=== PATIENT | male | born 1950 | race Caucasian/White ===

== ENCOUNTER 2021-03-31 16:13 | Inpatient (IN) | payer MEDICARE, SELFPAY ==
[2021-03-31] VITALS (8 sets, daily range): BP systolic 115–132; BP diastolic 66–93; PULSE 66–78; RESP 18–31; TEMP 36.7; O2SAT 89–100
--- NOTE | ~2021-03-31 | CT_ITS ---
EXAMINATION: CTA chest PE protocol DATE: 03/31/2021 18:01 INDICATION: Shortness of breath TECHNIQUE: Computed tomography angiography (CTA) of the chest was performed with 100 mL Omnipaque-350 intravenous contrast timed to evaluate the pulmonary arteries. Coronal maximum intensity projection 3D-reconstructions were created by the technologist. The dose-length product (DLP) was 1007.11 mGy-cm . Automated exposure control and iterative reconstruction technique were employed. COMPARISON: None. FINDINGS: The pulmonary arteries are moderately well-opacified. No pulmonary embolism is identified. Respiratory motion artifact slightly limits the examination. There are small pleural effusions. There is dependent atelectasis. No pneumothorax is identified. There is calcified coronary artery atherosc lerosis. Cardiomegaly is noted. No pathologically enlarged thoracic lymph nodes are identified. There is bilateral gynecomastia. There is moderate thoracic spondylosis. Unchanged amorphous calcification is again noted anterior to the left hepatic lobe, likely reflecting prior surgical change. IMPRESSION: 1. No pulmonary embolus identified, sensitivity slightly limited by motion artifact. 2. Small pleural effusions. Reviewed, dictated and finalized at location A. IMPRESSION: 1. No pulmonary embolus identified, sensitivity slightly limited by motion nakul fact. 2. Small pleural effusions.
--- NOTE | ~2021-03-31 | XR_ITS ---
EXAMINATION: XR chest 1V portable DATE: 04/02/2021 05:50 INDICATION: Fluid overload. TECHNIQUE: A single frontal view of the chest was obtained on 2 radiographs. COMPARISON: Chest 2 views 03/31/2021, chest CT 03/31/2021 FINDINGS: There are small posteriorly layering pleural effusions bilaterally. There are mild airspace opacities in the mid and lower lung zones. No pneumothorax. The heart size is normal. IMPRESSION: 1. Small pleural effusions. 2. Airspace opacities in the mid and lower lung zones with worsening on the right, likely atelectasis . Reviewed, dictated and finalized at location A. IMPRESSION: 1. Small pleural effusions. 2. Airspace opacities in the mid and lower lung zones with worsening on the rig ht, likely atelectasis.
--- NOTE | ~2021-03-31 | XR_ITS ---
EXAMINATION: XR chest 2V DATE: 03/31/2021 16:43 INDICATION: Increasing shortness of breath TECHNIQUE: AP and lateral views of the chest are obtained. COMPARISON: None available FINDINGS: The examination is limited by the patient's body habitus. There are airspace opacities of t he left lower lobe. There is no pleural effusion or pneumothorax. The heart size is upper limits of n ormal for technique. There is mild thoracic spondylosis. IMPRESSION: 1. Left lower lobe airspace opacities, consistent with atelectasis versus pneumonia. Reviewed, dictated and finalized at location A. IMPRESSION: 1. Left lower lobe airspace opacities, consistent with atelectasis versus pneum onia.
--- NOTE | 2021-03-31 16:10 | ECG_ITS ---
Measurements Intervals [place] Rate: 64 P: 67 TX: 167 QRS: 37 QRSD: 112 T: 52 QT: 406 QTc: 419 Interpretive Statements SINUS RHYTHM INTRAVENTRICULAR CONDUCTION DELAY BASELINE ARTIFACT- I, II, III, AVR, AVL, AVF, V1-V6 BORDERLINE ECG Electronically Signed On 03-31-2021 20:08:27 CDT by Theo Mann D.O.
[2021-03-31 16:36] LABS: Eosinophils Percent Auto 1.4 % (0-4.4); Hematocrit 28.3 % (42.0-52.0); Hemoglobin 8.4 g/dL (14.0-18.0); Immature Granulocyte Absolute 0.01 K/mm3 (0.00-0.031); Immature Granulocyte Percent A 0.5 % (0-0.5); Immature Platelet Fraction Pct 8.9 % (0.9-11.2); Lymphocytes Absolute Auto 0.73 K/mm3 (0.9-3.2); Lymphocytes Percent Auto 35.1 % (18.3-44.2); Mean Corpuscular HGB Conc 29.7 g/dl (32-36); Mean Corpuscular Hemoglobin 34.1 pg (26-34); Mean Platelet Volume 12.3 fl (7.4-10.4); Monocytes Absolute Auto 0.3 K/mm3 (0.1-0.6); Neutrophils Absolute Auto 1.1 K/mm3 (1.3-6.7); Nucleated Red Blood Cells Absolute Auto 0.1 K/mm3 (0.0-0.012); Nucleated Red Blood Cells Perc 3.8 % (0.0-0.2); Red Blood Count 2.46 M/mm3 (4.6-6.20); Red Cell Distribution Width 17.7 % (11.5-14.5); White Blood Count 2.1 K/mm3 (4.5-10.0)
[2021-03-31 16:59] LABS: Platelet Count Result 16 k/mm3 (150-375)
[2021-03-31 17:00] LABS: Platelet Estimate Decreased (Adequate)
[2021-03-31 17:01] LABS: Polychromasia 1+ (NORMAL)
[2021-03-31 17:02] LABS: Anisocytosis 2+ (NORMAL)
[2021-03-31 17:03] LABS: D Dimer 1.07 ug/mL (<0.48)
--- NOTE | 2021-03-31 17:08 | ED.GENADULT ---
HPI - General Adult General Chief complaint: Shortness of Breath/Dyspnea Stated complaint: SOB Time Seen by Provider: 03/31/21 16:14 Source: patient and RN notes reviewed History of Present Illness HPI narrative: Patient is a 70 y/o male complaining of moderate SOB for last 2-3 weeks. He states that his symptoms are worse with exertion. He has some cough, but not chest pain or fever. He is currently being treated for multiple myeloma at [facility]. He states that he was supposed to have home O2 delivered today, but it did not happen for some reason. EMS was called for increasing SOB. His pulse was initially 89% on RA and he was placed on O2 via Nasal Cannula. Related Data Home Medications Medication Instructions Recorded Confirmed celecoxib 200 mg PO DAILY 03/31/21 cholestyramine (with sugar) 1 ea PO 03/31/21 ferrous sulfate 65 mg PO DAILY 03/31/21 lisinopril 40 mg PO DAILY 03/31/21 [facility] wt-blk coh 250 mg PO DAILY PRN 03/31/21 metoprolol tartrate 25 mg PO BID 03/31/21 piroxicam [Feldene] 20 mg PO DAILY 03/31/21 tamsulosin [Flomax] 0.4 mg PO DAILY 03/31/21 tizanidine [Zanaflex] 2 mg PO DAILY 03/31/21 torsemide [Demadex] 10 mg PO DAILY 03/31/21 Allergies Allergy/AdvReac Type Severity Reaction Status Date / Time Penicillins Allergy Unknown Unknown Unverified 03/31/21 20:11 MARK ANTHONY AND MARK ANTHONY FIRST Allergy Unknown Unknown Uncoded 03/31/21 20:11 AID CREAM Review of Systems Constitutional: Constitutional: Denies chills, Denies fever(s), Denies headache(s) and Denies weakness Eyes: Eyes: Denies blurry vision ENT: Denies headache(s) and Denies neck pain Cardiovascular: Cardiovascular: Denies chest pain and Reports dyspnea Respiratory: Respiratory: Reports cough and Reports dyspnea Gastrointestinal: Gastrointestinal: Denies abdominal pain, Denies diarrhea, Denies nausea and Denies vomiting Genitourinary: Genitourinary: Denies hematuria and Denies dysuria Musculoskeletal: Musculoskeletal: Denies back pain and Denies neck pain Neurologic: Denies headache(s) and Denies weakness Exam Const: General: no acute distress and well developed Orientation/consciousness: oriented to person, oriented to place, oriented to time and patient oriented x3 HENMT: Head: normocephalic Ears: external ears normal General nose exam: Normal external nose present Eyes: General: appearance normal, both eyes and all related structures Conjunctivae: conjunctivae normal Neck: Neck: normal visual inspection and full ROM Chest: Chest palpation & inspection: normal inspection of the chest and no tenderness Resp: Effort & Inspection: normal respiratory effort Auscultation: clear to auscultation bilaterally Cardio: Rate: regular rate Rhythm: regular rhythm GI: GI Palp: No abdominal tenderness and Yes Soft to palpation Skin: General skin exam: normal color and turgor normal Neuro: General: oriented to person, oriented to place, oriented to time and patient oriented x3 Cognition (Neuro): normal cognition Extrem: General: normal to inspection, full ROM and no pedal edema Psych: Appearance: grossly normal Mental Status: mental status grossly normal Affect: normal affect Course Consultations Consultation #1: Discussed with Dr. Green with oncology, he states that patient need ICU admission due to BiPap status. Date: 04/01/21 Time: 21:58 Consultation #2: 00:11 AM [facility] called back and states that there is no ICU bed available. Discussed with Nicolas, who agrees to accept the patient to Dr. Barreto in MICU. However, patient will be put on waitlist for now as there is no bed available currently. Consultation #3: Discussed Dr. Álvarez, who agrees admit. Date: 04/01/21 Time: 01:20 Vital Signs Vital signs: Vital Signs Temperature 36.7 C 03/31/21 16:15 Pulse Rate 66 03/31/21 16:15 Respiratory Rate 20 03/31/21 16:15 Blood Pressure 124/93 H 03/31/21 16:15 Pulse Oximetry 100 03/31/21 16:15
[2021-03-31 17:21] LABS: Anion Gap 4 mmol/L (8-16); Blood Urea Nitrogen 26 mg/dL (9-20); Carbon Dioxide 33 mmol/L (22-30); Chloride 107 mmol/L (98-107); Estimated CRCL calculation 94 ml/min; Estimated Glomerular Filt Rate > 60; Glucose 109 mg/dL (65-110); Sodium 144 mmol/L (137-145)
[2021-03-31 17:28] LABS: NT Pro B Type Natriuretic Pept 973 pg/mL (5-100); Troponin I 0.014 ng/mL (0.000-0.034)
[2021-03-31] MEDS: SODIUM POLYSTYRENE SULFONONATE 15 GM/60 ML BTL 30 GM PO (19:08)
[2021-03-31] MEDS: FUROSEMIDE INJ 40 MG/4 ML VIAL IV PUSH (19:15)
--- NOTE | 2021-03-31 19:15 | PC.NURSE ---
Attempted draw for three hour. Nurse informed..she stated he was a very difficult stick...charge nurse informed and phlebotomy called.[employer]
[2021-03-31] MEDS: HYDROcodone/acetaminophen (*CRX) 5-325 MG TABLET 1 TAB (19:16)
[2021-03-31 19:28] LABS: Alveolar/Arterial O2 Gradient 91.2 mmHg; Base Excess ABG 4.4 mEq/l (+/-2.0); Fractional Inspired Oxygen 36 %; Oxygen Content ABG 11.5 %vol (16.0-22.0); Oxyhemoglobin 89.3 % THb (90.0-100.0); PO2 ABG 75.1 mmHg (80.0-100.0); PO2 FiO2 Ratio Arterial Blood 2.09 %; Total Hemoglobin 9.1 g/dL (12.0-18.0)
[2021-03-31 19:30] LABS: Device NASAL CANNULA; Modified Allen's Test Pass; PCO2 ABG 77.9 mmHg (35.0-45.0); Site Drawn LEFT RADIAL; pH ABG 7.245 (7.350-7.450)
[2021-03-31 21:11] LABS: Troponin I < 0.012 ng/mL (0.000-0.034)
[2021-03-31 22:32] LABS: EDCOVIDSCREEN Negative (Negative)
[2021-04-01] VITALS (19 sets, daily range): BP systolic 100–158; BP diastolic 48–104; PULSE 70–107; RESP 20–29; TEMP 36.4–37.7; O2SAT 94–100
--- NOTE | 2021-04-01 00:11 | PC.NURSE ---
[facility] called to inform me that pt is not an established pt with them and bc of this they are unable to transfer pt to their facility. no icu beds are available at this time
--- NOTE | 2021-04-01 01:43 | PC.NURSE ---
Spoke with Ivania at [facility] for pt triage. No beds available at this time.
[2021-04-01 01:50] LABS: Base Excess ABG 3.2 mEq/l (+/-2.0); Fractional Inspired Oxygen 32 %; HCO3 ABG 29.4 mEq/l (22.0-26.0); Oxygen Content ABG 10.4 %vol (16.0-22.0); Oxygen Saturation ABG 95.4 % (95.0-100.0); Oxyhemoglobin 91.4 % THb (90.0-100.0); PCO2 ABG 55.3 mmHg (35.0-45.0); PO2 ABG 82.5 mmHg (80.0-100.0); PO2 FiO2 Ratio Arterial Blood 2.58 %; pH ABG 7.344 (7.350-7.450)
[2021-04-01 01:51] LABS: Device NASAL CANNULA; Modified Allen's Test Pass; Site Drawn LEFT RADIAL
[2021-04-01] MEDS: HYDROcodone/acetaminophen (*CRX) 5-325 MG TABLET 1 TAB PO ×3 (01:58→21:12)
[2021-04-01 02:02] LABS: Potassium 5.1 mmol/L (3.4-5.0)
[2021-04-01] MEDS: SODIUM POLYSTYRENE SULFONONATE 15 GM/60 ML BTL 30 GM (02:14)
--- NOTE | 2021-04-01 02:15 | PC.NURSE ---
Per pt and family member, pt did not get first kayexelate dose due to BiPAP and resting. Per Dr. Homer ROJAS, ERP would like dose given to pt. Pt educated on med at this time, med administered.
[2021-04-01 02:18] LABS: Troponin I < 0.012 ng/mL (0.000-0.034)
--- NOTE | 2021-04-01 04:44 | PM.IMHP ---
H&P: HPI History of Present Illness Date/Time: 04/01/21 04:44 Chief Complaint: shortness of breath Narrative: Patient is a 70 y/o male who presents to the ER with shortness of breath which has been worsening since past 2-3 weeks. He does have some cough but no fever or chest pain. He is currently somnolent and most of the history was taken from his was at bedside. He is diagnosed with myelodysplastic syndrome and is on treatment at [facility] [place]. He was diagnosed with MDS earlier this year with low blood count and dyspnea on exertion that he was having since past several years. He has also been getting on and off transfusion ever since then and the last transfusion was done about 2 weeks ago. He had complained of shortness of breath and was referred to her primary care with a saw yesterday. They had ordered oxygen for him to get at home however it has not been delivered yet. Due to ongoing and worsening shortness of breath and EMS was called and he was brought to the ER for evaluation. His oxygen saturation was 89% on room air and was placed on nasal cannula. In the ER he was noted to have hypercapnia and hence was placed on BiPAP. Evaluation was done with a chest x-ray which showed possible pneumonia which was followed up by CT a chest which showed bilateral small pleural effusion with no PE or any pneumonia as well. His BNP was elevated at 956 and was given a dose of Lasix. His ABG did improve after BiPAP therapy and has been taken off and placed on a nasal nasal cannula while I evaluated him. He has a history of some obstructive sleep apnea and was put on CPAP however was not able to tolerate and hence has not been using it. He is given some pain medication earlier today and has been somnolent and not able to get any history out of him currently. He has morbid obesity also when been nonambulatory for a while. He had had gastric bypass surgery in the past for his morbid obesity several years ago. Review of Systems Review of Systems: ROS unobtainable: Yes unobtainable due to medical condition and unobtainable due to mental status Meds Home Medications and Allergies Home Medications Medication Instructions Recorded Confirmed Type celecoxib 200 mg PO DAILY 03/31/21 History cholestyramine (with sugar) 1 ea PO 03/31/21 History ferrous sulfate 65 mg PO DAILY 03/31/21 History lisinopril 40 mg PO DAILY 03/31/21 History mag oxide-Damian wt-blk coh 250 mg PO DAILY PRN 03/31/21 History metoprolol tartrate 25 mg PO BID 03/31/21 History piroxicam [Feldene] 20 mg PO DAILY 03/31/21 History tamsulosin [Flomax] 0.4 mg PO DAILY 03/31/21 History tizanidine [Zanaflex] 2 mg PO DAILY 03/31/21 History torsemide [Demadex] 10 mg PO DAILY 03/31/21 History Allergies Allergy/AdvReac Type Severity Reaction Status Date / Time Penicillins Allergy Unknown Unknown Unverified 04/01/21 01:57 MARK ANTHONY AND MARK ANTHONY FIRST Allergy Unknown Unknown Uncoded 04/01/21 01:57 AID CREAM Vital Signs Vital Signs - 24 hr 03/31/21 16:15 03/31/21 18:11 03/31/21 18:45 Temperature 98.0 F Pulse Rate 66 78 Respiratory Rate 20 18 Blood Pressure 124/93 H 132/66 Pulse Oximetry 100 99 89 L 03/31/21 18:46 03/31/21 19:50 03/31/21 20:41 Temperature Pulse Rate 74 75 Respiratory Rate 31 H 25 H Blood Pressure 115/78 Pulse Oximetry 94 100 100 03/31/21 21:55 03/31/21 22:02 04/01/21 00:09 Temperature Pulse Rate 76 76 79 Respiratory Rate 20 23 H 21 H Blood Pressure 122/70 Pulse Oximetry 99 99 100 04/01/21 01:32 04/01/21 02:32 04/01/21 04:20 Temperature Pulse Rate 83 74 78 Respiratory Rate 24 H 29 H 28 H Blood Pressure 112/52 L 123/104 H 110/58 L Pulse Oximetry 97 98 96 Exam Narrative: GENERAL: The patient with morbid obesity, somnolent not in acute respiratory distress HEENT: Nonicteric sclerae, PERRLA, EOMI. Oropharynx clear. Moist mucous membranes. Conjunctivae appear well perfused. CHEST: Chest wall is n
--- NOTE | 2021-04-01 07:43 | ADMGEN ---
This patient, Sushant Lee, was admitted to IMU Room 214-01 at 0700 on 04/01/2021. Patient/family oriented to hospital policies and general routines including ID bracelet, bed and alarms, visiting hours, pain management, procedures, bathroom and other care routines, personal items, smoking policy, room service/diet, and visiting hours. Information on how to activate the Rapid Response Team has been discussed. Patient/Family are encouraged to report perceived risks to care and to ask questions if they do not understand what they are told or what they should do.
--- NOTE | 2021-04-01 08:19 | PM.CNPUL ---
Assessment and Plan Assessment and plan (1) Acute respiratory failure with hypoxia and hypercapnia: Code(s): J96.01 - Acute respiratory failure with hypoxia; J96.02 - Acute respiratory failure with hypercapnia Status: Acute Assessment and Plan: Patient with morbid obesity and per the chart has obstructive sleep apnea that is untreated because he can't tolerate a CPAP mask. Patient presented with a blood gas of 7.25-70 8-75 on 4 L nasal cannula with a serum bicarbonate of 33. His CT angiogram of the chest is negative for pulmonary edema, no focal infiltrates, bilateral pleural effusions with dependent atelectasis, cardiomegaly and no evidence of emphysema or bronchiectasis. I suspect patient has chronic hypercarbic respiratory failure from his morbid obesity and has multifactorial etiology of his acute respiratory failure. Patient with an elevated BNP, edema and bilateral pleural effusions on his CT scan consistent with fluid overload. I agree with Lasix diuresis at this time. An echocardiogram has been ordered. Patient is also on narcotics at home and this may be contributing to his respiratory insufficiency and was given [place] in the emergency department. recommend minimizing narcotics at this time. In addition, by report he also has untreated obstructive sleep apnea. Please obtain old sleep studies. I see no evidence of a bacterial infection at this time. Patient had a negative COVID antibody test and I will send RT PCR assay As he has myelodysplastic syndrome and may not produce adequate antibodies for positive test. Of note patient tells me he completed is COVID vaccination and has also had a booster. I have increased his inspiratory pressures to 20 to increase his tidal volume. currently is on BiPAP rate of 20 pressure is 20/7, inspiratory time 1, rise 3, FiO2 30% with 100% saturations at this time. Will follow with you. History of Present Illness History of Present Illness Consult date: 04/01/21 Requesting physician: Bryce Simmons MD Reason for consult: hypoxemia Chief complaint: chf/acute respriatory failure Narrative: 04/01/2021: This is a new Pulmonary consult for hypoxemic and hypercarbic respiratory failure history obtained from chart and from patient who is lethargic on BiPAP 70-year-old male with a history of morbid obesity status post gastric bypass in the past, atrial fibrillation status post ablation in the past, untreated obstructive sleep apnea as he is unable to tolerate CPAP mask , myelodysplastic syndrome on Aranesp at [facility] with his last transfusion of few weeks ago and with precancerous state and possibly being evaluated for bone marrow transplantation, who presented to the emergency room on 03/31 with 2-3 weeks worsening shortness of breath. Apparently he had called his private medical doctor on 03/30 who was in the process of ordering home oxygen for him but this was not delivered. Symtpoms worse with exertion. He denies fever, chills, positive cough but no phlegm and no hemoptysis. He is covid vaccinated and recieved a booster. in mask was called for his increasing shortness of breath and his pulse oximetry was initially 89% on room air and he was placed on nasal cannula oxygen. In the emergency department the patient was somnolent and had low saturation and was placed on oxygen and patient had a blood gas of 7.25/78/75 on 4 L nasal cannula and was placed on BiPAP. The notes state his blood gas improved on BiPAP although his next blood gas is listed as being on 3 L nasal cannula with a pH of 7.34/55/83. Patient had a CT angiogram demonstrating no pulmonary embolism, small bilateral pleural effusions with dependent atelectasis and cardiomegaly. There were no focal infiltrates consistent with pneumonia. Patient had a white blood cell count of 2.1, hemoglobin 8.4[place] [address]. BNP 973, serum bicarb 33, trop negative X 3. Patient had a rapid COVID IgM IgG test th
[2021-04-01] MEDS: FUROSEMIDE INJ 40 MG/4 ML VIAL IV PUSH (12:24)
[2021-04-01] MEDS: FERROUS SULFATE 324 MG TABLET PO (12:25)
[2021-04-01] MEDS: METOPROLOL TARTRATE 25 MG TABLET PO ×2 (12:25→21:12)
[2021-04-01] MEDS: TIZANIDINE HCL 2 MG TABLET PO (12:26)
[2021-04-01] MEDS: lisinopriL 20 MG TABLET 40 MG PO (12:26)
[2021-04-01] MEDS: TAMSULOSIN HCL 0.4 MG CAPSULE PO (12:27)
[2021-04-01 16:41] LABS: SARS-CoV-2 RNA PCR Negative (Negative)
--- NOTE | 2021-04-01 17:44 | PDONCCN ---
HPI - Date of Consult Date/Time: 04/01/21 17:44 Requesting Physician: Bryce Simmons MD Primary Care Provider: Karl Mayer MD - Consult Narrative Reason for consult: Myelodysplastic syndrome Narrative: Sushant Lee is a 70 year old male with history of morbid obesity status post gastric bypass surgery in 1998 along with history of myelodysplastic syndrome diagnosed recently. Currently he has been on added as on every 2 week basis for last 5 months duration without any improvement. He came into the hospital with worsening shortness of breath. He denies any chest pain. CT chest showed bilateral small pleural effusion with no PE and pneumonia. BNP was elevated. According to the patient and the he has been getting blood transfusion and platelet transfusion almost on every 2 weeks basis. He denies any bleeding including melena hematochezia. [place] [address] with hemoglobin of 8.4 and WBC 2.1 with ANC of 1100. Review of Systems - Review of Systems All systems reviewed & are unremarkable except as noted in HPI and bel - Neurologic Reports system reviewed and no additional complaints, except as documented, Denies headache(s), Denies weakness PMF Family History: Family History (Last Updated 04/01/21 @ 08:55 by Cassy Lomas RN) Other Unknown family medical history - Social History Social History: Social History Alcohol Use: Alcohol intake: never Substance Use: Substance use: never Others: Spiritual care concerns: No Smoking Status: Smoking status: Former smoker Tobacco type: cigarettes Approximate Smoking End Date: 2016 Meds Home Medications Medication Instructions Recorded Confirmed Type celecoxib 200 mg PO DAILY 03/31/21 04/01/21 History cholestyramine (with sugar) 1 ea PO DAILY 03/31/21 04/01/21 History ferrous sulfate 325 mg PO DAILY 03/31/21 04/01/21 History lisinopril 40 mg PO DAILY 03/31/21 04/01/21 History mag oxide-Damian wt-blk coh 250 mg PO DAILY PRN 03/31/21 04/01/21 History metoprolol tartrate 25 mg PO BID 03/31/21 04/01/21 History piroxicam [Feldene] 20 mg PO DAILY 03/31/21 04/01/21 History tamsulosin [Flomax] 0.4 mg PO DAILY 03/31/21 04/01/21 History tizanidine [Zanaflex] 2 mg PO DAILY PRN 03/31/21 04/01/21 History torsemide [Demadex] 10 mg PO DAILY 03/31/21 04/01/21 History hydrocodone-acetaminophen 1 tablet PO Q4H PRN 04/01/21 04/01/21 History Allergies Allergy/AdvReac Type Severity Reaction Status Date / Time Penicillins Allergy Unknown Unknown Unverified 04/01/21 01:57 MARK ANTHONY AND MARK ANTHONY FIRST Allergy Unknown Unknown Uncoded 04/01/21 01:57 AID CREAM Results - Labs CBC & Chem 7: 03/31/21 16:27 04/01/21 01:49 Labs: BMP 04/01/21 01:49 Potassium 5.1 H Cardiac Enzymes 03/31/21 04/01/21 Range/Units 19:28 01:49 Troponin I < 0.012 < 0.012 (0.000-0.034) ng/mL Assessment and Plan - Additional Plan Myelodysplastic syndrome high risk diagnosed recently. Patient is currently seen by oncologist at [facility] and receiving Aranesp on a every 2 weeks basis for last 5 months duration. So far has not shown any good response and has been receiving blood transfusion and platelet transfusion on every 2-3 weeks basis. I have discussed this case with patient and the on the phone in detail. I have recommended that he should talk to his oncologist regarding changing therapy to hypomethylating agent like Dacogen or Vidaza. In the meantime we will order nutritional panel and will order blood transfusion for hemoglobin of less than 7 and platelet transfusion for platelet count of less since 20,000. His ANC is adequate and growth factor support is not needed at this time. Patient will follow-up with his oncologist. Exam - Vital Signs Vital Signs - 24 hr 03/31/21 18:11 03/31/21 18:45 03/31/21 18:46 Temperature Pulse Rate 78 Res
[2021-04-01 19:34] LABS: Iron 86 ug/dL (49-181)
[2021-04-01 19:37] LABS: Folic Acid > 20.0 ng/mL (2.76->20)
[2021-04-01 19:43] LABS: Percent Iron Saturation 34 % (20-50)
[2021-04-01 20:38] LABS: Glucose Point of Care 94 mg/dl (65-105)
[2021-04-02] VITALS (21 sets, daily range): BP systolic 98–160; BP diastolic 46–92; PULSE 72–92; RESP 16–26; TEMP 35.8–37.1; O2SAT 91–99
--- NOTE | 2021-04-02 | ECHO_ITS ---
Patient Info Name: Sushant Lee Age: 70 years : 1950 Gender: Male Ht: 71 in Wt: 403 lbs BSA: 3.13 m2 HR: 78 bpm BP: 113 / 47 mmHg Technical Quality: Poor Exam Date: 04/02/2021 10:30 AM Exam Location: [facility] Patient Status: Inpatient Admit Date: 04/01/2021 Staff Ordering Physician: Bryce Simmons MD Casing Trimmer: Jennifer Clarke RDCS Attending Provider: Bryce Simmons MD Exam Type: CA echo dop color flow w con Study Info Indications R06.00 - Dyspnea, unspecified Complete two-dimensional, color flow and Doppler transthoracic echocardiogram is performed with contrast to opacify the left ventricle and to improve the deliniation of the left ventricle endocardial borders. Contrast/Agitated Saline Contrast/Ag. Saline: Definity Amount: 3.00 ml Administered By: Pamela Rajput RN Existing IV Access: Yes IV Access Condition: patent with no signs of infiltration Reason for Poor Study: patient body habitus Summary 1. Technically suboptimal study due to poor sonographic images. 2. Definity contrast administered improved wall motion interpretation. 3. Left ventricular systolic function is normal, estimated at 55-60%. However, cannot assess for regional wall motion abnormalities. 4. Left ventricular chamber dimension is normal. 5. The left ventricular diastolic function is normal. 6. E/e' 8 is minimally elevated. 7. There is mild aortic valve sclerosis. 8. No pulmonary hypertension, estimated pulmonary arterial systolic pressure is 23 mmHg. Left Ventricle Technically suboptimal study due to poor sonographic images. E/e' 8 is minimally elevated. Definity contrast administered improved wall motion interpretation. Left ventricular systolic function is normal, estimated at 55-60%. However, cannot assess for regional wall motion abnormalities. Left ventricular chamber dimension is normal. The left ventricular diastolic function is normal. Right Ventricle Right ventricular chamber dimension is not well visualized. Left Atria Left atrial chamber dimension is normal. Right Atria Right atrial chamber dimension is not well visualized. Aortic Valve The aortic valve is probable trileaflet. There is mild aortic valve sclerosis. There is no aortic valve stenosis. There is no aortic valve regurgitation. Pulmonic Valve The pulmonic valve is not well visualized. Mitral Valve The mitral valve has not well visualized. There is no mitral valve stenosis. There is no mitral valve regurgitation. Tricuspid Valve The tricuspid valve leaflets are not well visualized. There is no tricuspid valve regurgitation. No pulmonary hypertension, estimated pulmonary arterial systolic pressure is 23 mmHg. Pericardium/Pleural There is no pericardial effusion. Inferior Vena Cava Inferior vena cava is not well visualized. Aorta The aortic root size at the sinus of Valsalva is normal. Left Ventricular Outflow Tract Name Value Normal LVOT 2D LVOT Diameter 2.04 cm LVOT Doppler LVOT Peak Gradient 6 mmHg
--- NOTE | 2021-04-02 03:14 | PCRCNOTE ---
Pt put on APNEA LINK and took it off promptly stating he could not sleep with it on.
[2021-04-02] MEDS: lisinopriL 20 MG TABLET 40 MG PO (08:55)
[2021-04-02] MEDS: METOPROLOL TARTRATE 25 MG TABLET PO ×2 (08:55→20:45)
[2021-04-02] MEDS: FERROUS SULFATE 324 MG TABLET PO (08:55)
[2021-04-02] MEDS: FUROSEMIDE INJ 40 MG/4 ML VIAL IV PUSH ×2 (08:55→20:46)
[2021-04-02] MEDS: TIZANIDINE HCL 2 MG TABLET PO (08:55)
[2021-04-02] MEDS: TAMSULOSIN HCL 0.4 MG CAPSULE PO (08:55)
--- NOTE | 2021-04-02 09:10 | PM.PNPUL ---
Progress Note: A&P Assessment and Plan (1) Acute respiratory failure with hypoxia and hypercapnia: Code(s): J96.01 - Acute respiratory failure with hypoxia; J96.02 - Acute respiratory failure with hypercapnia Status: Acute Assessment and Plan: 04/02 Patient with morbid obesity and per the chart has obstructive sleep apnea that is untreated because he can't tolerate a CPAP mask. Patient presented with a blood gas of 7.25-70 8-75 on 4 L nasal cannula with a serum bicarbonate of 33. His CT angiogram of the chest is negative for pulmonary edema, no focal infiltrates, bilateral pleural effusions with dependent atelectasis, cardiomegaly and no evidence of emphysema or bronchiectasis. I suspect patient has chronic hypercarbic respiratory failure from his morbid obesity and has multifactorial etiology of his acute respiratory failure. Patient with an elevated BNP, edema and bilateral pleural effusions on his CT scan consistent with fluid overload. I agree with Lasix diuresis at this time. An echocardiogram has been ordered. Patient is also on narcotics at home and this may be contributing to his respiratory insufficiency and was given [place] in the emergency department. recommend minimizing narcotics at this time. In addition, by report he also has untreated obstructive sleep apnea. Please obtain old sleep studies. I see no evidence of a bacterial infection at this time. Patient had a negative COVID antibody test and I will send RT PCR assay As he has myelodysplastic syndrome and may not produce adequate antibodies for positive test. Of note patient tells me he completed is COVID vaccination and has also had a booster. I have increased his inspiratory pressures to 20 to increase his tidal volume. currently is on BiPAP rate of 20 pressure is 20/7, inspiratory time 1, rise 3, FiO2 30% with 100% saturations at this time. 04/02 Patient with chronic hypercarbic respiratory failure likely due to obesity hypoventilation syndrome. Will check a blood gas later today to assess the level of his daytime hypercarbia. Patient with initial blood gas of 7.25/78/75 so he has chronic hypercarbic respiratory failure and he would benefit from noninvasive ventilation to prevent further deterioration and prevent subsequent hospitalizations. He wore BiPAP 20/7 last night intermittently. Per the nurse he could only tolerate the machine about 1 hour and then took the mask off. Per the patient he had trouble sleeping with the mask and he says he wore it on and off all night. He says the mask was uncomfortable and did not fit properly and the air was not delivered comfortably. I spent greater than 30 minutes adjusting his full face mask and since he did not tolerate the BiPAP pressures I placed him on noninvasive ventilation with AVAPS mode which I adjusted to his comfort and ended up with a rate of 18, tidal volume 550, EPAP 8, minimal eye inspiratory pressure 9, maximal inspiratory pressure 30, inspiratory time 0.7 seconds, rise 1 which is our fastest, 25% FIO2 with his saturations being 100%. He liked the settings and believes he could sleep with the settings. I will perform overnight oximetry on Regarding this hospitalization patient also states that he did not take his water pills on 03/29 or 03/30 because they make him urinate frequently and he knew he was going to be out and about on those days. He has improved after Lasix diuresis in the hospital now on states that he is 90% back to normal. Patient states he smokes cigarettes from age [age] at 1 pack per day for 24 pack years, patient vapor cigarettes from [id number], patient smokes marijuana in a pipe with 2 inhalations a day once every 2 months for the last 6 months. He has no emphysematous changes on his CT angiogram from 03/31/21. He will need outpatient PFTs to assess his lung volume and lung function regarding the possibility of COPD. A
[2021-04-02] MEDS: PERFLUTREN LIPID MICROSPHERES 1.5 ML VIAL DILUTED TO 10 ML TOTAL VOLUME (11:10)
--- NOTE | 2021-04-02 11:34 | PC.NURSE ---
On 04/02/21, the student, [Dorothy Salgado], provided care and completed [facility] documentation on this patient. I have reviewed the student's documentation and agree with the findings.
[2021-04-02] MEDS: CELECOXIB 200 MG CAPSULE PO (11:58)
[2021-04-02 12:43] LABS: Alveolar/Arterial O2 Gradient 22.3 mmHg; Base Excess ABG 6.3 mEq/l (+/-2.0); Fractional Inspired Oxygen 21 %; HCO3 ABG 31.2 mEq/l (22.0-26.0); Oxygen Content ABG 9.6 %vol (16.0-22.0); Oxygen Saturation ABG 94.3 % (95.0-100.0); Oxyhemoglobin 91.1 % THb (90.0-100.0); PO2 FiO2 Ratio Arterial Blood 3.33 %; pH ABG 7.431 (7.350-7.450)
[2021-04-02 12:46] LABS: Total Hemoglobin 7.4 g/dL (12.0-18.0)
[2021-04-02 12:47] LABS: Device ROOM AIR; Modified Allen's Test Pass; Site Drawn LEFT RADIAL
--- NOTE | 2021-04-02 15:07 | PM.IMPN ---
Progress Note: A&P Assessment and Plan (1) Acute respiratory failure with hypoxia and hypercapnia: Code(s): J96.01 - Acute respiratory failure with hypoxia; J96.02 - Acute respiratory failure with hypercapnia Status: Acute (2) CHF (congestive heart failure): Qualifiers: Heart failure chronicity: unspecified Heart failure type: unspecified Qualified Code(s): I50.9 - Heart failure, unspecified Code(s): I50.9 - Heart failure, unspecified Status: Acute (3) Pancytopenia: Code(s): D61.818 - Other pancytopenia Status: Acute (4) Myelodysplastic syndrome: Code(s): D46.9 - Myelodysplastic syndrome, unspecified Status: Acute (5) Morbid obesity: Code(s): E66.01 - Morbid (severe) obesity due to excess calories Status: Acute (6) Status post gastric bypass for obesity: Code(s): Z98.84 - Bariatric surgery status Status: Acute (7) Hyperkalemia: Code(s): E87.5 - Hyperkalemia Status: Acute (8) Acute encephalopathy: Code(s): G93.40 - Encephalopathy, unspecified Status: Acute Additional Plan # acute hypoxic hypercapnic respiratory failure likely underlying obesity hypoventilation syndrome with a component of fluid overload. Chest x-ray with atelectatic changes questionable pneumonia. CTA was done which ruled out PE and also pneumonia. Has bilateral small pleural effusion likely relating congestive heart failure as one of the etiology for his hypoxic respiratory failure. COVID screen negative. Continue aggressive diuresis. Will increase the dose of Lasix to 40 mg IV twice a day today. Strict intake output record and daily weight. Continue to monitor renal parameters and electrolytes. Pulmonary consult recommendations appreciated. ABG at baseline today was 7.43 with pCO2 of 48. He does not require nocturnal noninvasive ventilation. He was encouraged to follow-up with his wire cutter so that he can be resumed on CPAP at nighttime. # congestive heart failure continue aggressive diuresis. Strict intake output record and daily weight. Continue to monitor renal parameters and electrolytes. # hyperkalemia Kayexalate given in the ER now resolved. # myelodysplastic syndrome on Aranesp treatment at [place] needing on/off transfusion. wanted a 2nd opinion from here. Oncology service was consulted today. There recommendations appreciated. It seems that he has is requiring blood and platelet transfusion every 2-3 weeks. Oncologist here suggested that patient should talk to his own oncologist for possible hypomethylating agent like dacogen and vidaza. Blood transfusion if hemoglobin is less than 7 and platelet count is less than 20,000. # pancytopenia related to MDS stable counts as compared to recent labs reviewed from [facility]. # hypertension # BPH # chronic pain # morbid obesity status post gastric bypass surgery # altered mental status/somnolence likely related to pain medication he received minimize opiates/narcotics as well as acute hypercarbic respiratory failure. It has now improved. Continue to monitor. # paroxysmal atrial fibrillation status post ablation done by tours hostess at [place] currently in sinus rhythm he is also off anticoagulation # DVT prophylaxis will put him on Lovenox # code status patient on non decisional at this point discussed with . She will discuss with him once he wakes up. Will continue full code status. Patient wanted himself to be transferred to [facility]. It appears that PTC has been called but they do not have bed. He will likely be discharged in a.m. if he continues to do well. PT OT has been consulted. Subjective Date/time seen: 04/02/21 15:07 Interval history: Patient wore BiPAP 20/ last night intermittently. As per the nurse he had use BiPAP only for 1 hour overnight. He find the mass very uncomfortable. He was on 3 L of oxygen earlier but that has been weaned down to room air by julia
[2021-04-02] MEDS: HYDROcodone/acetaminophen (*CRX) 5-325 MG TABLET 1 TAB PO (15:15)
[2021-04-03] VITALS (10 sets, daily range): BP systolic 95–139; BP diastolic 46–76; PULSE 64–91; RESP 14–26; TEMP 35.6–36.6; O2SAT 94–97
--- NOTE | 2021-04-03 03:00 | PC.NURSE ---
[facility] transfer line updated. States that pt's case will be re-evaluated due to med-tele status.
[2021-04-03 05:02] LABS: Eosinophils Percent Auto 1.4 % (0-4.4); Hematocrit 25.4 % (42.0-52.0); Immature Platelet Fraction Pct 6.5 % (0.9-11.2); Lymphocytes Absolute Auto 0.64 K/mm3 (0.9-3.2); Lymphocytes Percent Auto 44.1 % (18.3-44.2); Mean Corpuscular HGB Conc 31.5 g/dl (32-36); Mean Corpuscular Hemoglobin 35.1 pg (26-34); Mean Corpuscular Volume 111.4 fl (80-100); Mean Platelet Volume 10.7 fl (7.4-10.4); Monocytes Absolute Auto 0.2 K/mm3 (0.1-0.6); Monocytes Percent Auto 10.3 % (2.6-8.5); Neutrophils Absolute Auto 0.6 K/mm3 (1.3-6.7); Neutrophils Percent Auto 44.2 % (45.5-73.1); Nucleated Red Blood Cells Absolute Auto 0.1 K/mm3 (0.0-0.012); Nucleated Red Blood Cells Perc 4.1 % (0.0-0.2); Red Blood Count 2.28 M/mm3 (4.6-6.20); Red Cell Distribution Width 17.2 % (11.5-14.5)
[2021-04-03 05:30] LABS: White Blood Count 1.5 K/mm3 (4.5-10.0)
[2021-04-03 05:31] LABS: Platelet Count Result 24 k/mm3 (150-375)
[2021-04-03 05:37] LABS: Anion Gap 3 mmol/L (8-16); Blood Urea Nitrogen 39 mg/dL (9-20); Calcium 8.3 mg/dL (8.4-10.2); Carbon Dioxide 35 mmol/L (22-30); Chloride 102 mmol/L (98-107); Estimated CRCL calculation 66 ml/min; Estimated Glomerular Filt Rate 40; Glucose 106 mg/dL (65-110); Magnesium 1.9 mg/dL (1.6-2.3); Potassium 4.4 mmol/L (3.4-5.0); Sodium 140 mmol/L (137-145)
--- NOTE | 2021-04-03 07:42 | P.PNPL_ITS ---
Progress Note: A&P Assessment and Plan (1) Acute respiratory failure with hypoxia and hypercapnia: Code(s): J96.01 - Acute respiratory failure with hypoxia; J96.02 - Acute respiratory failure with hypercapnia Status: Acute Assessment and Plan: 04/02 Patient with morbid obesity and per the chart has obstructive sleep apnea that is untreated because he can't tolerate a CPAP mask. Patient presented with a blood gas of 7.25-70 8-75 on 4 L nasal cannula with a serum bicarbonate of 33. His CT angiogram of the chest is negative for pulmonary edema, no focal infiltrates, bilateral pleural effusions with dependent atelectasis, cardiomegaly and no evidence of emphysema or bronchiectasis. I suspect patient has chronic hypercarbic respiratory failure from his morbid obesity and has multifactorial etiology of his acute respiratory failure. Patient with an elevated BNP, edema and bilateral pleural effusions on his CT scan consistent with fluid overload. I agree with Lasix diuresis at this time. An echocardiogram has been ordered. Patient is also on narcotics at home and this may be contributing to his respiratory insufficiency and was given [place] in the emergency department. recommend minimizing narcotics at this time. In addition, by report he also has untreated obstructive sleep apnea. Please obtain old sleep studies. I see no evidence of a bacterial infection at this time. Patient had a negative COVID antibody test and I will send RT PCR assay As he has myelodysplastic syndrome and may not produce adequate antibodies for positive test. Of note patient tells me he completed is COVID vaccination and has also had a booster. I have increased his inspiratory pressures to 20 to increase his tidal volume. currently is on BiPAP rate of 20 pressure is 20/7, inspiratory time 1, rise 3, FiO2 30% with 100% saturations at this time. 04/02 Patient with chronic hypercarbic respiratory failure likely due to obesity hypoventilation syndrome. Will check a blood gas later today to assess the level of his daytime hypercarbia. Patient with initial blood gas of 7.25/78/75 so he has chronic hypercarbic respiratory failure and he would benefit from noninvasive ventilation to prevent further deterioration and prevent subsequent hospitalizations. He wore BiPAP 20/7 last night intermittently. Per the nurse he could only tolerate the machine about 1 hour and then took the mask off. Per the patient he had trouble sleeping with the mask and he says he wore it on and off all night. He says the mask was uncomfortable and did not fit properly and the air was not delivered comfortably. I spent greater than 30 minutes adjusting his full face mask and since he did not tolerate the BiPAP pressures I placed him on noninvasive ventilation with AVAPS mode which I adjusted to his comfort and ended up with a rate of 18, tidal volume 550, EPAP 8, minimal eye inspiratory pressure 9, maximal inspiratory pressure 30, inspiratory time 0.7 seconds, rise 1 which is our fastest, 25% FIO2 with his saturations being 100%. He liked the settings and believes he could sleep with the settings. I will perform overnight oximetry on Regarding this hospitalization patient also states that he did not take his water pills on 03/29 or 03/30 because they make him urinate frequently and he knew he was going to be out and about on those days. He has improved after Lasix diuresis in the hospital now on states that he is 90% back to normal. Patient states he smokes cigarettes from age [age] at 1 pack per day for 24 pack years, patient vapor cigarettes from [id number], patient smokes marijuana in a pipe with 2 inhalations a day
[2021-04-03] MEDS: FUROSEMIDE INJ 40 MG/4 ML VIAL IV PUSH (08:24)
[2021-04-03] MEDS: FERROUS SULFATE 324 MG TABLET PO (08:24)
[2021-04-03] MEDS: METOPROLOL TARTRATE 25 MG TABLET PO (08:24)
[2021-04-03] MEDS: TIZANIDINE HCL 2 MG TABLET PO (08:24)
[2021-04-03] MEDS: TAMSULOSIN HCL 0.4 MG CAPSULE PO (08:25)
[2021-04-03] MEDS: CELECOXIB 200 MG CAPSULE PO (08:26)
--- NOTE | 2021-04-03 08:50 | P.CDI_ITS ---
CDI Query Clarification Request 1)-CHF, unspecified has been documented - Has bilateral small pleural effusion likely relating congestive heart failure as one of the etiology for his hypoxic respiratory failure documented -Lasix 40mg IV q12hrs ordered Please further specify type and acuity of CHF: * Systolic *Acute * Diastolic *Chronic * Both systolic and diastolic *Acute on chronic * Unable to determine *Unable to determine 2)- Acute encephalopathy has been documented Please further specify type of encephalopathy: * Metabolic * Toxic * Hypertensive * Hepatic * Other * Unable to determine <Pura Richmond RN - Last Filed: 04/03/21 08:57> 1. Acute on chronic diastolic congestive heart failure exacerbation 2. Mental status change due to metabolic encephalopathy <Vikas Rivas MD - Last Filed: 04/03/21 14:08>
--- NOTE | 2021-04-03 12:54 | PC.NURSE ---
On 04/03/21, the student, [Ivet Braun], provided care and completed [facility] documentation on this patient. I have reviewed the student's documentation and agree with the findings.
--- NOTE | 2021-04-03 14:08 | PM.IMPN ---
Progress Note: A&P Assessment and Plan (1) Acute respiratory failure with hypoxia and hypercapnia: Code(s): J96.01 - Acute respiratory failure with hypoxia; J96.02 - Acute respiratory failure with hypercapnia Status: Acute (2) CHF (congestive heart failure): Qualifiers: Heart failure chronicity: unspecified Heart failure type: unspecified Qualified Code(s): I50.9 - Heart failure, unspecified Code(s): I50.9 - Heart failure, unspecified Status: Acute (3) Pancytopenia: Code(s): D61.818 - Other pancytopenia Status: Acute (4) Myelodysplastic syndrome: Code(s): D46.9 - Myelodysplastic syndrome, unspecified Status: Acute (5) Morbid obesity: Code(s): E66.01 - Morbid (severe) obesity due to excess calories Status: Acute (6) Status post gastric bypass for obesity: Code(s): Z98.84 - Bariatric surgery status Status: Acute (7) Hyperkalemia: Code(s): E87.5 - Hyperkalemia Status: Acute (8) Acute encephalopathy: Code(s): G93.40 - Encephalopathy, unspecified Status: Acute Additional Plan # acute hypoxic hypercapnic respiratory failure likely underlying obesity hypoventilation syndrome with a component of fluid overload. Chest x-ray with atelectatic changes questionable pneumonia. CTA was done which ruled out PE. Chest CT was negative for infiltrate or consolidation. He has bilateral small pleural effusion likely relating congestive heart failure as one of the etiology for his hypoxic respiratory failure. COVID screen negative. He was diuresed with Lasix. Today his creatinine has been noticed to be trending up to 1.7 today. I will stop diuretics today is he seems to be euvolemic on clinical exam. Strict intake output record and daily weight. Continue to monitor renal parameters and electrolytes. Pulmonary consult recommendations appreciated. ABG at baseline today was 7.43 with pCO2 of 48. He does not require nocturnal noninvasive ventilation. He was encouraged to follow-up with his rib sawyer so that he can be resumed on CPAP at nighttime after he have a repeat sleep study and has obstructive sleep apnea based on sleep study. # congestive heart failure continue. He was diuresed with Lasix with creatinine trending up today. He is euvolemic on clinical exam as well. Will hold diuretics today.. Strict intake output record and daily weight. Continue to monitor renal parameters and electrolytes. # hyperkalemia Kayexalate given in the ER now resolved. # myelodysplastic syndrome on Aranesp treatment at [facility] needing on/off transfusion of PRBC and platelets every 2-3 weeks. wanted a 2nd opinion from here. Oncology service was consulted. There recommendations appreciated. It seems that he is requiring blood and platelet transfusion every 2-3 weeks. Oncologist here suggested that patient should talk to his own oncologist for possible hypomethylating agent like dacogen and vidaza. Blood transfusion if hemoglobin is less than 7 and platelet count is less than 20,000. He has not required any PRBC 0 platelet transfusion while he is hospitalized here. Patient wanted himself to be transferred to [facility] for further care. [facility] was cold on the day of presentation. Today I received a call from [facility] fellow, Ramos Wall. He is accepted to [facility] pending bed availability. # pancytopenia related to MDS stable counts as compared to recent labs reviewed from [facility]. # hypertension # BPH # chronic pain # morbid obesity status post gastric bypass surgery # altered mental status/somnolence likely related to pain medication he received minimize opiates/narcotics as well as acute hypercarbic respiratory failure. It has now improved. Continue to monitor. # paroxysmal atrial fibrillation status post ablation done by utility operator yarn at [facility] currently in sinus rhythm he is also off anticoagulation # DVT prophylaxis continue Lovenox galvez
--- NOTE | 2021-04-03 16:07 | PC.NURSE ---
This patient, Sushant Lee, was transferred to [facility] on 04/03/21 at 1552. Personal belongings sent with patient. Report given to Cherie. Appropriate documentation sent with patient.
--- NOTE | 2021-04-26 14:47 | PM.TDS ---
Transfer Discharge Sum: Prov Provider Date of admission: 04/01/21 01:16 Primary care physician: Karl Mayer MD Admitting clinician: Bryce Simmons MD Consults: 04/01/21 04:50 Consult to Physician Routine Comment: spoke with dr parra regarding consult Consulting Provider: Jun Parra golf club weighter/MD group to consult: pulmonary Reason for consultation: hypercapnic respiratory failure Has provider been notified: Yes 04/01/21 04:56 Consult to Physician Routine Comment: called exchange with consult Consulting Provider: Emigdio Onofre golf club weighter/MD group to consult: Dr. Onofre Reason for consultation: MDS on treatment Has provider been notified: Yes DS: Admitting Diagnosis Discharge Date 04/03/21 Admitting Diagnosis Acute hypoxic and hypercapnic respiratory failure Congestive heart failure Hyperkalemia Myelodysplastic syndrome Pancytopenia secondary to myelodysplastic Syndrome hypertension BPH Chronic pain syndrome Morbid obesity Altered mental status Paroxysmal atrial fibrillation DS: Discharge Diagnosis Discharge Diagnosis (1) Acute respiratory failure with hypoxia and hypercapnia: Code(s): J96.01 - Acute respiratory failure with hypoxia; J96.02 - Acute respiratory failure with hypercapnia Status: Acute (2) CHF (congestive heart failure): Qualifiers: Heart failure chronicity: unspecified Heart failure type: unspecified Qualified Code(s): I50.9 - Heart failure, unspecified Code(s): I50.9 - Heart failure, unspecified Status: Acute (3) Pancytopenia: Code(s): D61.818 - Other pancytopenia Status: Acute (4) Myelodysplastic syndrome: Code(s): D46.9 - Myelodysplastic syndrome, unspecified Status: Acute (5) Morbid obesity: Code(s): E66.01 - Morbid (severe) obesity due to excess calories Status: Acute (6) Status post gastric bypass for obesity: Code(s): Z98.84 - Bariatric surgery status Status: Acute (7) Hyperkalemia: Code(s): E87.5 - Hyperkalemia Status: Acute (8) Acute encephalopathy: Code(s): G93.40 - Encephalopathy, unspecified Status: Acute Assessment and Plan: # acute hypoxic hypercapnic respiratory failure likely underlying obesity hypoventilation syndrome with a component of fluid overload. Chest x-ray with atelectatic changes questionable pneumonia. CTA was done which ruled out PE. Chest CT was negative for infiltrate or consolidation. He has bilateral small pleural effusion likely relating congestive heart failure as one of the etiology for his hypoxic respiratory failure. COVID screen negative. He was diuresed with Lasix. Today his creatinine has been noticed to be trending up to 1.7 today. I will stop diuretics today is he seems to be euvolemic on clinical exam. Strict intake output record and daily weight. Continue to monitor renal parameters and electrolytes. Pulmonary consult recommendations appreciated. ABG at baseline today was 7.43 with pCO2 of 48. He does not require nocturnal noninvasive ventilation. He was encouraged to follow-up with his patient support assistant so that he can be resumed on CPAP at nighttime after he have a repeat sleep study and has obstructive sleep apnea based on sleep study. # congestive heart failure continue. He was diuresed with Lasix with creatinine trending up today. He is euvolemic on clinical exam as well. Will hold diuretics today.. Strict intake output record and daily weight. Continue to monitor renal parameters and electrolytes. # hyperkalemia Kayexalate given in the ER now resolved. # myelodysplastic syndrome on Aranesp treatment at [place] needing on/off transfusion of PRBC and platelets every 2-3 weeks. wanted a 2nd opinion from here. Oncology service was consulted. There recommendations appreciated. It seems that he is requiring blood and platelet transfusion every 2-3 weeks. Oncologist here suggested that aicha
== END 2021-04-03 18:59 | disposition short-term general hospital (02) | DRG 189 ==
LOC: ANHED 04-01 01:49 → ANHIMU 04-01 07:21 → ANH2MED 04-07 13:03 → ANHIMU 04-07 13:03
PROVIDERS: Emergency Medicine; Internal Medicine Hematology & Oncology; Internal Medicine Pulmonary Disease; Admitting Provider Internal Medicine; Emergency Provider Emergency Medicine; PCP Family Medicine; Visit Provider Internal Medicine Critical Care Medicine
DX: J96.01 Acute respiratory failure with hypoxia (principal); I50.33 Acute on chronic diastolic (congestive) heart failure; G93.41 Metabolic encephalopathy; D61.818 Other pancytopenia; E66.2 Morbid (severe) obesity with alveolar hypoventilation; J96.22 Acute and chronic respiratory failure with hypercapnia; I11.0 Hypertensive heart disease with heart failure; Z20.822 Contact with and (suspected) exposure to COVID-19; D46.9 Myelodysplastic syndrome, unspecified; Z98.84 Bariatric surgery status; E87.5 Hyperkalemia; N40.0 Benign prostatic hyperplasia without lower urinary tract symptoms; G89.29 Other chronic pain; I48.0 Paroxysmal atrial fibrillation; Z79.899 Other long term (current) drug therapy; Z87.891 Personal history of nicotine dependence; Z88.0 Allergy status to penicillin; Z98.890 Other specified postprocedural states
CPT/HCPCS: 36415; 36430; 36600; 71045; 71046; 71275; 80048; 82607; 82728; 82746; 82805; 82948; 83540; 83550; 83735; 83880; 84132; 84439; 84443; 84484; 85025; 85055; 85380; 86900; 86901; 87426; 93005; 94003; 94762; 96374; 97161; 97166; 99285; A9270; C8929; C9803; J1940; P9034; Q9957; Q9967; U0003; U0005